=== PATIENT | male | born 1955 | race Caucasian/White ===

== ENCOUNTER 2022-05-24 09:00 | Outpatient (CLI) | payer BC ==
--- NOTE | 2022-05-24 12:54 | XRAY Report ---
PROCEDURE: Foot 3 View LT INDICATIONS: LEFT FOOT PAIN TECHNIQUE: 3 views of the foot were acquired. COMPARISON: None FINDINGS: Bones: Small calcaneal spur present. Joint space narrowing and small marginal erosion noted at the fi rst interphalangeal joint. No evidence of fracture Soft tissues: No tibiotalar joint effusion. Achilles tendon appears normal. IMPRESSION: No evidence of fracture or foreign body Arthritic changes at the first interphalangeal joint with small marginal erosion, suggesting an infla mmatory component Reviewed by: Jimmie Diane MD on 05/24/2022 11:53 AM [place] Approved by: Jimmie Diane MD on 05/24/2022 11:53 AM [facility] Station ID: [id number]
== END 2022-05-24 09:01 | disposition home or self-care (01) ==
LOC: DI.S 09:00
PROVIDERS: ATTEND Physician Assistant
DX: M19.072 Primary osteoarthritis, left ankle and foot (principal)

== ENCOUNTER 2022-08-05 12:07 | Outpatient (CLI) | payer BC ==
[2022-08-05 14:56] LABS: HCT - HEMATOCRIT 50.8 % (42.0-52.0); HGB - HEMOGLOBIN 16.1 g/dL (14.0-18.0); MEAN CORPUSCULAR HEMOGLOBIN 32.4 pg (27.0-31.0); MEAN CORPUSCULAR HGB CONC 31.7 g/dL (32.0-36.0); MEAN CORPUSCULAR VOLUME 102.2 fL (80.0-94.0); MEAN PLATELET VOLUME 9.6 fL (7.4-11.4); RED BLOOD COUNT 4.97 10^6/uL (4.70-6.10); RED CELL DISTRIBUTION WIDTH 14.4 % (12.0-15.0); WHITE BLOOD COUNT 8.1 x10^3/uL (4.8-10.8)
[2022-08-05 15:09] LABS: CALCIUM 9.6 mg/dL (8.5-10.3); CREATININE 1.5 mg/dL (0.6-1.2); POTASSIUM 4.2 mmol/L (3.5-5.0)
== END 2022-08-05 12:08 | disposition home or self-care (01) ==
LOC: LAB.S 12:07
PROVIDERS: ATTEND Emergency Medicine
DX: I50.9 Heart failure, unspecified (principal)
CPT/HCPCS: 36415; 80048; 83880; 85025; 85027

== ENCOUNTER 2023-09-23 10:31 | Outpatient (CLI) | payer OTHER ==
--- NOTE | 2023-09-23 18:53 | Ultrasound Report ---
PROCEDURE: Arterial Duplex Lwr Ext BL INDICATIONS: PVD TECHNIQUE: Color and pulse Doppler interrogation was performed of both lower extremity arterial systems, with im age documentation. COMPARISON: None FINDINGS: Right lower extremity: Common femoral artery: 79 cm/sec, with triphasic flow. Deep femoral artery: 38 cm/sec, with triphasic flow. Proximal superficial femoral artery: 46 cm/sec, with triphasic flow. Mid superficial femoral artery: 52 cm/sec, with triphasic flow. Distal superficial femoral artery: 38 cm/sec, with triphasic flow. Popliteal artery: 39 cm/sec, with triphasic flow. Posterior tibial artery: 48 cm/sec, with triphasic flow. Anterior tibial artery/dorsalis pedis: 52/31 cm/sec, with triphasic flow. Persaud-scale imaging description: Calcific plaque. No stenosis. Left lower extremity: Common femoral artery: 71 cm/sec, with triphasic flow. Deep femoral artery: 37 cm/sec, with triphasic flow. Proximal superficial femoral artery: 55 cm/sec, with triphasic flow. Mid superficial femoral artery: 54 cm/sec, with triphasic flow. Distal superficial femoral artery: 34 cm/sec, with triphasic flow. Popliteal artery: 44 cm/sec, with triphasic flow. Posterior tibial artery: 45 cm/sec, with triphasic flow. Anterior tibial artery/dorsalis pedis: 46/43 cm/sec, with triphasic flow. Persaud-scale imaging description: Calcific plaque. No stenosis. IMPRESSION: No evidence of significant stenosis involving the arterial tree of both lower extremities. Normal tri phasic waveforms. Reviewed by: Frandy Hernández MD on 09/23/2023 6:52 PM PDT Approved by: Frandy Hernández MD on 09/23/2023 6:52 PM PDT Station ID: [id number]
== END 2023-09-23 10:32 | disposition home or self-care (01) ==
LOC: DI 10:31
PROVIDERS: ATTEND Emergency Medicine
DX: I73.9 Peripheral vascular disease, unspecified (principal)
CPT/HCPCS: 93925

== ENCOUNTER 2023-12-20 22:45 | Outpatient (CLI) | payer SELFPAY | END 2023-12-20 22:46 | disposition EMS.NT | LOC: EMS 22:45 | DX: Z03.89 Encounter for observation for other suspected diseases and conditions ruled out (principal) ==

== ENCOUNTER 2023-12-21 10:08 | Outpatient (CLI) | payer SELFPAY | END 2023-12-21 23:59 | disposition EMS.NT | LOC: EMS 10:08 | DX: Z03.89 Encounter for observation for other suspected diseases and conditions ruled out (principal) ==

== ENCOUNTER 2023-12-22 01:17 | Outpatient (CLI) | payer SELFPAY | END 2023-12-22 23:59 | disposition EMS.NT | LOC: EMS 01:17 | DX: Z03.89 Encounter for observation for other suspected diseases and conditions ruled out (principal) ==